=== PATIENT | female | born 1995 | race Caucasian/White ===

== ENCOUNTER 2019-12-26 16:42 | Emergency (ER) | payer OTHER, SELFPAY ==
--- NOTE | 2019-12-26 | XR_ITS ---
EXAMINATION: XR ANKLE, RIGHT CLINICAL INFORMATION: Inversion injury. COMPARISON: None available. TECHNIQUE: 3 views of the right ankle (AP, lateral, and oblique views). FINDINGS: No fracture or dislocation of the right ankle. The ankle mortise is intact. No lytic or sclerotic osseous lesions. Moderate soft tissue edema along the lateral malleolus. No radiopaque foreign bodies. IMPRESSION: No demonstrated acute fracture or dislocation of the right ankle. Moderate soft tissue edema along the lateral ankle.
[2019-12-26 17:51] VITALS: BP 143/65; PULSE 99; RESP 18; TEMP 37.1; O2SAT 100; BMI 30.9
[2019-12-26 18:19] VITALS: BP 137/69; PULSE 94; RESP 17; TEMP 36.5; O2SAT 98
--- NOTE | 2019-12-26 18:23 | ED.LOWEXIN ---
HPI - Extremity Injury (Lower) General Chief Complaint: Extremity Injury, Lower Stated Complaint: Right Ankle Swelling Time Seen by Provider: 12/26/19 18:23 Source: patient Mode of arrival: ambulatory Limitations: no limitations History of Present Illness HPI Narrative: twisted ankle while picking apples complaint: ankle injury Onset (ago): day(s) Injury: Right: ankle Type of Injury: inversion Severity: moderate Relieving factors: NSAID Associated symptoms: swelling Related Data Allergies Allergy/AdvReac Type Severity Reaction Status Date / Time SEAFOOD Allergy Unknown ANAPHYLAXIS Uncoded 12/08/19 19:00 seafood Allergy Unknown rash Uncoded 03/09/19 00:00 Review of Systems Constitutional: Constitutional: Reports no additional constitutional complaints Eyes: Eyes: Reports no additional eye complaints ENT: Denies dizziness Cardiovascular: Cardiovascular: Reports no additional cardiovascular complaints Respiratory: Respiratory: Reports as per HPI Gastrointestinal: Gastrointestinal: Reports no additional gastrointestinal complaints Genitourinary: Genitourinary: Reports no additional female genitourinary complaints Musculoskeletal: Musculoskeletal: Reports no additional musculoskeletal complaints Integumentary/Breasts: Skin/Breast: Denies rash Neurologic: Reports system reviewed and no additional complaints, except as documented, Denies dizziness and Denies Sensory deficit (Neuro) Psychiatric: Psychiatric: Denies anxiety [facility] Past Medical History Medical History (Updated 12/26/19 @ 18:52 by Jose Land MD) No known health problems Social History Social History Smoking Status: Never smoker Use of substances other than those prescribed or required for medical reasons: No Advance Directives: No Advance Directives Information Provided: Yes Physical Exam Vital Signs and I&O and Narrative: Vital Signs and I&O: Vital Signs Temp 97.7 F 12/26/19 18:19 Pulse 94 12/26/19 18:19 Resp 17 12/26/19 18:19 BP 137/69 12/26/19 18:19 Pulse Ox 98 12/26/19 18:19 Intake & Output 12/25/19 12/26/19 12/26/19 18:59 06:59 18:59 Weight 81.647 kg Body Mass Index 30.9 Const: General: healthy appearing Nutritional Appearance: average body habitus Orientation/consciousness: oriented to person and patient oriented x3 Limitations: no limitations HENMT: Head: Yes normal to inspection Ears: external ears normal General nose exam: Normal external nose present Mouth: Normal oral and palatal mucosa present and oropharynx normal Throat: Yes posterior oropharynx normal Eyes: General: appearance normal, both eyes and all related structures Neck: Other: supple Neck: Yes normal visual inspection Chest: Chest palpation & inspection: normal inspection of the chest Resp: Auscultation: clear to auscultation bilaterally Cardio: Jugular venous distension: no JVD Rate: regular rate Rhythm: regular rhythm Heart sounds: S1 normal heart sound present and S2 normal heart sound present GI: Inspection: Yes normal to inspection Palpation (GI): Soft to palpation, nontender and No hepatosplenomegaly present Auscultation: normal bowel sounds : General: Yes no CVA tenderness Back/Spine/Pelvis: Back: no CVA tenderness Skin: General skin exam: no rashes or lesions noted Neuro: General: oriented to person and patient oriented x3 Cranial nerves: Yes CN's II-XII intact bilaterally Motor exam (neuro): 5/5 motor strength present throughout Sensory Exam: No Sensory deficit (Neuro) Extrem: Other: right ankle with lateral malleoulous swelling, no base of 5th tenderness Psych: Appearance: grossly normal MDM - Extremity Injury (Lower) MDM Narrative Medical decision making narrative: no fracture on xray, impression is ankle sprain Imaging Data ankle xray: Attestation: I personally reviewed and interpreted this imaging study as follows: My impression: no fracture or dislocation Discharge Plan Discharge Clinical Impression: Ankle sprain and strain Patient Disposition: Home, Self-Care Instructions: Ankle Sprain (ED) Additional Instructions: Ice elevation, tylenol or motrin
== END 2019-12-26 19:10 | disposition home or self-care (01) ==
PROVIDERS: Emergency Provider Emergency Medicine
DX: S93.401A Sprain of unspecified ligament of right ankle, initial encounter (principal); M25.571 Pain in right ankle and joints of right foot; X50.1XXA Overexertion from prolonged static or awkward postures, initial encounter; Y93.01 Activity, walking, marching and hiking; Y92.9 Unspecified place or not applicable; Y99.9 Unspecified external cause status
CPT/HCPCS: 73610; 99283; 99284